=== PATIENT | female | born 1990 | race American Indian/Alaskan Native ===

== ENCOUNTER 2016-10-01 18:59 | Emergency (ER) | payer MEDICAID ==
[2016-10-01 19:52] LABS: Basophils % (Auto) 0.2 % (0.0-1.8); Hematocrit 41.7 % (30.3-42.9); Hemoglobin 13.2 gm/dl (10.1-14.3); Mean Corpuscular HGB Conc 32 % (30-34); Mean Corpuscular Volume 80 fl (79-97); Platelet Count 355 K/mm3 (140-440); Red Blood Count 5.22 M/mm3 (3.65-5.03); Red Cell Distribution Width 15.1 % (13.2-15.2); White Blood Count 10.3 K/mm3 (4.5-11.0)
[2016-10-01 19:55] LABS: Mean Corpuscular Hemoglobin 25 pg (28-32)
[2016-10-01 20:11] LABS: Alanine Aminotransferase 11 units/L (7-56); Albumin 4.1 g/dL (3.9-5); Alkaline Phosphatase 82 units/L (35-129); Anion Gap 22 mmol/L; BUN/Creatinine Ratio 11.42; Blood Urea Nitrogen 8 mg/dL (7-17); Calcium 8.6 mg/dL (8.4-10.2); Carbon Dioxide 21 mmol/L (22-30); Chloride 96.9 mmol/L (98-107); Glucose 78 mg/dL (65-100); Potassium 3.6 mmol/L (3.6-5.0); Sodium 136 mmol/L (137-145); Total Protein 8.1 g/dL (6.3-8.2)
[2016-10-01 21:32] LABS: Bilirubin,Urine NEG (Negative); Blood,Urine MOD (Negative); Ketones,Urine 80 mg/dL (Negative); Leukocyte Esterase,Urine SM (Negative); Mucus,Urine 3+ /HPF; Nitrite,Urine NEG (Negative); Urobilinogen,Urine < 2.0 mg/dL (<2.0)
[2016-10-02] MEDS ORDERED: MACROBID PO ONE (02:35)
[2016-10-02] MEDS ORDERED: NACL 0.9% 1000 ML 1,000 ML IV ONE (02:43)
[2016-10-02] MEDS ORDERED: TYLENOL PO ONE (02:43)
[2016-10-02] MEDS ORDERED: TORADOL IV ONE (02:54)
--- NOTE | 2016-10-02 02:54 | Emergency Department Report ---
HPI - General Chief Complaint: Urogenital-Female Time Seen by Provider: 10/02/16 02:29 - HPI HPI: This is a 26-year-old Afro-Mal[place]ian female presents the emergency department, driving himself in to be seen, with a complaint of a 3 to four-day history of some flulike symptoms. The patient says she has a mild headache, constantly feels warm with concern for fever, has some nausea and vomiting, some dysuria, and feels like she has "glassy eyes." She has not taken anything for symptoms prior to presentation. She denies any past medical history. No recent travel or sick contacts at home. She does not have a primary care physician. ED Past Medical Hx - Past Medical History Previous Medical History?: Yes Hx Hypertension: No Hx Congestive Heart Failure: No Hx Diabetes: No Hx Deep Vein Thrombosis: No Hx GERD: Yes Hx Renal Disease: No Hx Sickle Cell Disease: No Hx Seizures: No Hx Asthma: No Hx COPD: No Hx HIV: No - Surgical History Past Surgical History?: No - Social History Smoking Status: Never Smoker Substance Use Type: None - Medications Home Medications: Home Medications Medication Instructions Recorded Confirmed Last Taken Type Nitrofurantoin Keith/M-Cryst 100 mg PO Q12HR #14 capsule 10/02/16 Unknown Rx [Macrobid CAP] ED Review of Systems ROS: Stated complaint: FLU SYMPTOMS/WEAK/SWOLLEN VAG Other details as noted in HPI Comment: All other systems reviewed and negative Constitutional: fever. denies: weakness Eyes: denies: eye pain, eye discharge ENT: denies: ear pain, throat pain Respiratory: cough. denies: shortness of breath Cardiovascular: denies: chest pain, palpitations Gastrointestinal: nausea. denies: vomiting Genitourinary: dysuria. denies: discharge Musculoskeletal: myalgia. denies: back pain Skin: denies: rash, lesions Neurological: headache. denies: weakness, numbness, paresthesias Physical Exam - Physical Exam Vital Signs: Vital Signs 10/01/16 19:04 Temperature 100.1 F H Pulse Rate 108 H Respiratory 18 Rate Blood Pressure 132/77 O2 Sat by Pulse 99 Oximetry Physical Exam: GENERAL: The patient is well-developed well-nourished. HEENT: Normocephalic. Atraumatic. Extraocular motions are intact. Patient has moist mucous membranes. Pupils equal reactive to light bilaterally. No nystagmus. Oropharynx is clear without tonsillar hypertrophy, erythema or exudates. NECK: Supple. Trachea is midline. CHEST/LUNGS: Clear to auscultation. No cough heard during examination. There is no respiratory distress noted. HEART/CARDIOVASCULAR: Regular. There is no tachycardia. There is no gallop rub or murmur. ABDOMEN: Abdomen is soft, nontender. Patient has normal bowel sounds. There is no abdominal distention. SKIN: Skin is warm and dry. NEURO: The patient is awake, alert, and oriented. The patient is cooperative. The patient has no focal neurologic deficits. The patient has normal speech. Cranial nerves II through XII grossly intact. MUSCULOSKELETAL: There is no tenderness or deformity. There is no limitation range of motion. There is no evidence of acute injury. ED Course Vital Signs 10/01/16 19:04 Temperature 100.1 F H Pulse Rate 108 H Respiratory 18 Rate Blood Pressure 132/77 O2 Sat by Pulse 99 Oximetry ED Medical Decision Making - Lab Data Result diagrams: 10/01/16 19:37 10/01/16 19:37 - Radiology Data Radiology results: image reviewed interpreted by me: Chest x-ray did not show any acute process. Heart is normal shape and size. No effusions. No pneumothorax. No signs of pneumonia seen. - Medical Decision Making 26-year-old female presents the emergency department with complaint of some upper respiratory and or flulike symptoms. She does have a low-grade fever. No focus of the fever found on physical examination. Labs are mostly unremarkable but she does have a mild urinary tract infection. Chest x-ray did not show any pneumonia, pleural effusions or any acute process. Her urinalysis also showed about 80 ketones showing concern for some mild dehydration. She was given IV fluid and some Tylenol. Upon reevaluation she is feeling much improved and is resting comfortably. She was given a dose of Macrobid here and will be given a prescription for a one-week course. She has been encouraged to follow up with primary care and return to the ER with any worsening of her symptoms or any acute distress. - Differential Diagnosis viral syndrome, influenza, pneumonia Critical Care Time: No Critical care attestation.: If time is entered above; I have spent that time in minutes in the direct care of this critically ill patient, excluding procedure time. ED Disposition Clinical Impression: Viral syndrome Upper respiratory infection Qualifiers: URI type: unspecified URI Qualified Code(s): J06.9 - Acute upper respiratory infection, unspecified UTI (urinary tract infection) Qualifiers: Urinary tract infection type: acute cystitis Hematuria presence: without hematuria Qualified Code(s): N30.00 - Acute cystitis without hematuria Disposition: TO HOME OR SELFCARE Is pt being admited?: No Condition: Stable Instructions: Urinary Tract Infection in Women (ED), Fever in Adults (ED), Viral Syndrome (ED) Additional Instructions: Please follow-up with a primary care physician in the next few days. Return to the emergency department with any worsening of your symptoms or any acute distress. He can take Tylenol every 4 hours and ibuprofen every 6 hours, using weight-based dosing, as needed for fever or discomfort. Prescriptions: Nitrofurantoin Keith/M-Cryst [Macrobid CAP] 100 mg PO Q12HR #14 capsule Referrals: PRIMARY MD PRECIOUS [Primary Care Provider] - 3-5 Days HARJEET LEDESMA MD [Staff Physician] - 3-5 Days [facility] [Outside] - 3-5 Days Time of Disposition: 04:35
[2016-10-02 04:54] VITALS: BP 104/40
--- NOTE | 2016-10-02 07:15 | XRay Report ---
ROUTINE CHEST, TWO VIEWS: HISTORY: Call. The trachea, heart, mediastinal contour, lung stone and bony thorax are unremarkable. IMPRESSION: Unremarkable chest x-ray.
== END 2016-10-02 05:10 | disposition home or self-care (01) ==
LOC: ED 18:59
DX: B34.9 Viral infection, unspecified (principal); J06.9 Acute upper respiratory infection, unspecified; N30.00 Acute cystitis without hematuria; K21.9 Gastro-esophageal reflux disease without esophagitis
CPT/HCPCS: 36415; 71020; 80053; 81001; 84703; 85025; 96361; 96374; 99284; J1885; J7030

== ENCOUNTER 2018-05-05 09:03 | Emergency (ER) | payer MEDICAID ==
[2018-05-05 09:56] LABS: Bilirubin,Urine NEG (Negative); Blood,Urine SM (Negative); Color,Urine Yellow (Yellow); Mucus,Urine FEW /HPF; Protein,Urine <15 mg/dL mg/dL (Negative); Urobilinogen,Urine < 2.0 mg/dL (<2.0); WBC,Urine < 1.0 /HPF (0.0-6.0)
[2018-05-05 09:58] LABS: HCG Qualitative,Urine Negative (Negative)
[2018-05-05] MEDS ORDERED: SOLU-Medrol IM ONE (11:57)
[2018-05-05] MEDS ORDERED: TORADOL IM ONE (11:57)
--- NOTE | 2018-05-05 11:58 | Emergency Department Report ---
ED Back Pain/Injury HPI - General Chief Complaint: Abdominal Pain Stated Complaint: ABD PAIN/BACK PAIN/LEFT LEG Time Seen by Provider: 05/05/18 11:42 Source: patient Limitations: No Limitations - History of Present Illness Initial Comments: 28-year-old female presents to the ED with 3 day history of left-sided lower back pain, radiating into the left leg. Patient denies fall or injury. Patient states she lifts heavy objects at work. Patient denies numbness or weakness in the left leg. Denies urinary or bowel incontinence. Patient states she only reported mild suprapubic cramping when triage nurse asked about abdominal pain. Patient states she believes her menstrual period is about come on, however she did not come to the ER to be seen for her abdominal cramping. MD Complaint: back pain -: days(s) (3) Similar Symptoms Previously: No Radiation: left leg Severity: mild Quality: aching Consistency: intermittent Improves With: immobilization Worsens With: movement, other (bending over) Context: unknown Associated Symptoms: denies: weakness, chest pain, numbness, difficulty walking, difficulty urinating, incontinence, shortness of breath - Related Data Previous Rx's Medication Instructions Recorded Last Taken Type Naproxen [Naprosyn] 500 mg PO BID PRN #20 tablet 12/23/17 Unknown Rx Polymyxin B Sulf/Trimethoprim 1 drop OP QID #1 b 12/23/17 Unknown Rx [Polytrim Eye Drops [id number]/0.1%] Methocarbamol [Robaxin-750] 750 mg PO Q6HR PRN #20 tablet 05/05/18 Unknown Rx Naproxen [Naprosyn] 500 mg PO BID #20 tablet 05/05/18 Unknown Rx Allergies Allergy/AdvReac Type Severity Reaction Status Date / Time No Known Allergies Allergy Verified 05/05/18 09:03 ED Review of Systems ROS: Stated complaint: ABD PAIN/BACK PAIN/LEFT LEG Other details as noted in HPI Comment: All other systems reviewed and negative Constitutional: denies: chills, fever Respiratory: denies: shortness of breath Musculoskeletal: as per HPI ED Past Medical Hx - Past Medical History Previous Medical History?: Yes Hx Hypertension: No Hx Congestive Heart Failure: No Hx Diabetes: No Hx Deep Vein Thrombosis: No Hx GERD: Yes Hx Renal Disease: No Hx Sickle Cell Disease: No Hx Seizures: No Hx Asthma: No Hx COPD: No Hx HIV: No - Surgical History Past Surgical History?: No - Social History Smoking Status: Never Smoker Substance Use Type: None - Medications Home Medications: Home Medications Medication Instructions Recorded Confirmed Last Taken Type Naproxen [Naprosyn] 500 mg PO BID PRN #20 tablet 12/23/17 Unknown Rx Polymyxin B Sulf/Trimethoprim 1 drop OP QID #1 b 12/23/17 Unknown Rx [Polytrim Eye Drops [id number]/0.1%] Methocarbamol [Robaxin-750] 750 mg PO Q6HR PRN #20 tablet 05/05/18 Unknown Rx Naproxen [Naprosyn] 500 mg PO BID #20 tablet 05/05/18 Unknown Rx ED Physical Exam - General Limitations: No Limitations General appearance: alert, in no apparent distress - Head Head exam: Present: atraumatic, normocephalic - Eye Eye exam: Present: normal appearance - ENT ENT exam: Present: mucous membranes moist - Neck Neck exam: Present: normal inspection - Respiratory Respiratory exam: Present: normal lung sounds bilaterally. Absent: respiratory distress - Cardiovascular Cardiovascular Exam: Present: regular rate, normal rhythm - GI/Abdominal GI/Abdominal exam: Present: soft. Absent: distended, tenderness - Extremities Exam Extremities exam: Present: normal inspection. Absent: tenderness, pedal edema - Back Exam Back exam: Present: paraspinal tenderness (left lower lumbar), other (positive straight leg raise on left). Absent: vertebral tenderness - Neurological Exam Neurological exam: Present: alert, oriented X3. Absent: motor sensory deficit - Psychiatric Psychiatric exam: Present: normal affect, normal mood - Skin Skin exam: Present: warm, dry, intact, normal color ED Course Vital Signs 05/05/18 09:06 Temperature 98.3 F Pulse Rate 73 Respiratory 16 Rate Blood Pressure 121/64 [Right] O2 Sat by Pulse 98 Oximetry ED Medical Decision Making - Differential Diagnosis UTI, sciatica, myofascial strain Critical care attestation.: If time is entered above; I have spent that time in minutes in the direct care of this critically ill patient, excluding procedure time. ED Disposition Clinical Impression: Back pain with left-sided sciatica Disposition: TO HOME OR SELFCARE Is pt being admited?: No Condition: Stable Instructions: Lumbar Radiculopathy (ED) Prescriptions: Methocarbamol [Robaxin-750] 750 mg PO Q6HR PRN #20 tablet PRN Reason: Spasms Naproxen [Naprosyn] 500 mg PO BID #20 tablet Referrals: SHANEKA MCGUIRE MD [Staff Physician] - 3-5 Days Time of Disposition: 11:57
[2018-05-05 12:17] VITALS: BP 120/60
== END 2018-05-05 12:16 | disposition home or self-care (01) ==
LOC: ED 09:03
DX: M54.42 Lumbago with sciatica, left side (principal)
CPT/HCPCS: 81001; 81025; 96372; 99283; J1885; J2930

== ENCOUNTER 2019-04-16 08:39 | Emergency (ER) | payer SELFPAY ==
[2019-04-16 08:49] VITALS: BP 104/59
[2019-04-16] MEDS ORDERED: KETOROLAC 30 MG/1 ML INJ IM ONE (09:53)
[2019-04-16] MEDS ORDERED: CYCLOBENZAPRINE 10 MG TAB PO ONE (09:53)
--- NOTE | 2019-04-16 09:53 | Emergency Department Report ---
HPI - General Chief Complaint: Back Pain/Injury Time Seen by Provider: 04/16/19 09:40 - HPI HPI: 29-year-old -Beninese female presents to the emergency department with complaint of low back pain that has been going on since yesterday when the patie nt reached down to clean up some water on her floor. When the patient suddenly straightened back up "my back was out." The pain does not radiate. She denies any problems with bowel or bladder, numbness or paresthesias, or any neurological deficits. She denies any past medical history. However the patient says that she was here about one year ago and diagnosed with a "pinched nerve" and that this feels similar. She tried some Tylenol for her symptoms without any relief. The patient is ambulatory but was dropped off to be seen today. ED Past Medical Hx - Past Medical History Previous Medical History?: Yes Hx Hypertension: No Hx Congestive Heart Failure: No Hx Diabetes: No Hx Deep Vein Thrombosis: No Hx GERD: Yes Hx Renal Disease: No Hx Sickle Cell Disease: No Hx Seizures: No Hx Asthma: No Hx COPD: No Hx HIV: No - Surgical History Past Surgical History?: No - Social History Smoking Status: Never Smoker Substance Use Type: None - Medications Home Medications: Home Medications Medication Instructions Recorded Confirmed Last Taken Type Naproxen [Naprosyn] 500 mg PO BID PRN #20 tablet 12/23/17 Unknown Rx Polymyxin B Sulf/Trimethoprim 1 drop OP QID #1 b 12/23/17 Unknown Rx [Polytrim Eye Drops 76589kilso/0.1%] Methocarbamol [Robaxin-750] 750 mg PO Q6HR PRN #20 tablet 05/05/18 Unknown Rx Naproxen [Naprosyn] 500 mg PO BID #20 tablet 05/05/18 Unknown Rx Cyclobenzaprine [Flexeril 10 MG 10 mg PO TID PRN #12 tablet 04/16/19 Unknown Rx TAB] Ibuprofen [Motrin 800 MG tab] 800 mg PO Q8HR PRN #20 tablet 04/16/19 Unknown Rx ED Review of Systems ROS: Stated complaint: BACK PAIN Other details as noted in HPI Comment: All other systems reviewed and negative Constitutional: denies: chills, fever Cardiovascular: denies: chest pain Gastrointestinal: denies: abdominal pain Genitourinary: denies: dysuria, discharge Musculoskeletal: back pain. denies: arthralgia Neurological: denies: weakness, numbness, paresthesias Physical Exam - Physical Exam Vital Signs: Vital Signs 04/16/19 08:49 Temperature 98.7 F Pulse Rate 87 Respiratory 16 Rate Blood Pressure 104/59 O2 Sat by Pulse 97 Oximetry Physical Exam: GENERAL: The patient is well-developed well-nourished. HEENT: Normocephalic. Atraumatic. Patient has moist mucous membranes. EYES: Extraocular motions are intact. NECK: Supple. Trachea is midline. ABDOMEN: Abdomen is soft, nontender. There is no abdominal distention. SKIN:Skin is warm and dry. . NEURO: The patient is awake, alert, and oriented. The patient is cooperative. The patient has no focal neurologic deficits. Normal speech. DTR patella +2 over 4 bilaterally. MUSCULOSKELETAL: There is no tenderness or deformity. There is no limitation range of motion. There is no evidence of acute injury. Muscle strength 5 out of 5 upper and lower extremities bilaterally. BACK: There is both midline and bilateral paraspinal lumbar tenderness to palpation but no step-off or deformity. ED Course Vital Signs 04/16/19 08:49 Temperature 98.7 F Pulse Rate 87 Respiratory 16 Rate Blood Pressure 104/59 O2 Sat by Pulse 97 Oximetry ED Medical Decision Making - Medical Decision Making This patient presents with some nonradiating low back pain that started yes terday after she bent over to clean the floor. She has full range of motion and full muscle strength to all of her extremities. She denies any problems with bowel or bladder, numbness or paresthesias, or any neurological deficits. The discomfort is reproducible to palpation but there is no obvious step-off or deformity. While there was some apparent inciting event, there was no fall or trauma and I do not feel that any x-ray or advanced imaging was necessary at this time. She was given a shot of Toradol and a dose of Flexeril for analgesia. The patient was seen ambulatory in the emergency department and both appears and feels stable. She was given referrals for 2 different local orthopedic groups. The patient was also instructed to return to the emergency department immediately with any worsening of her symptoms or with any acute distress. - Differential Diagnosis muscle spasm, lumbar strain, herniated disc, pinched nerve Critical Care Time: No Critical care attestation.: If time is entered above; I have spent that time in minutes in the direct care of this critically ill patient, excluding procedure time. ED Disposition Clinical Impression: Low back pain Qualifiers: Chronicity: unspecified Back pain laterality: bilateral Sciatica presence: without sciatica Qualified Code(s): M54.5 - Low back pain Lumbar strain Qualifiers: Encounter type: initial encounter Qualified Code(s): S39.012A - Strain of muscle, fascia and tendon of lower back, initial encounter Disposition: TO HOME OR SELFCARE Is pt being admited?: No Condition: Stable Instructions: Low Back Strain (ED) Additional Instructions: Please follow up with an orthopedist in the next few days regarding your back pains. Return to the emergency Department with any worsening of your symptoms or any acute distress. You have been prescribed a medication that can be sedating. Therefore, this medication cannot be taken prior to driving, working, being responsible for children, and cannot be mixed with alcohol of any quantity. Prescriptions: Cyclobenzaprine [Flexeril 10 MG TAB] 10 mg PO TID PRN #12 tablet PRN Reason: Muscle Spasm Ibuprofen [Motrin 800 MG tab] 800 mg PO Q8HR PRN #20 tablet PRN Reason: Pain , Severe (7-10) Referrals: PRIMARY CAREMD [Primary Care Provider] - 2-3 Days SHANEKA MCGUIRE MD [Staff Physician] - 2-3 Days [facility] [Provider Group] - 2-3 Days Forms: Work/School Release Form(ED) Time of Disposition: 10:02
== END 2019-04-16 10:48 | disposition home or self-care (01) ==
LOC: ED 08:39
DX: S39.012A Strain of muscle, fascia and tendon of lower back, initial encounter (principal); K21.9 Gastro-esophageal reflux disease without esophagitis; X58.XXXA Exposure to other specified factors, initial encounter; Y93.89 Activity, other specified; Y92.89 Other specified places as the place of occurrence of the external cause; Y99.8 Other external cause status
CPT/HCPCS: 96372; 99282; J1885

== ENCOUNTER 2019-09-25 21:00 | Emergency (ER) | payer SELFPAY ==
[2019-09-25 21:20] VITALS: BP 124/60
[2019-09-26 00:08] LABS: Bilirubin,Urine NEG (Negative); Blood,Urine LG (Negative); Color,Urine Yellow (Yellow); HCG Qualitative,Urine Negative (Negative); Mucus,Urine FEW /HPF; Urobilinogen,Urine < 2.0 mg/dL (<2.0); WBC,Urine > 182.0 /HPF (0.0-6.0)
--- NOTE | 2019-09-26 00:19 | Emergency Department Report ---
ED Female HPI - General Chief complaint: Urogenital-Female Stated complaint: BLOOD IN URINE Time Seen by Provider: 09/26/19 00:13 Source: patient Mode of arrival: Ambulatory Limitations: No Limitations - History of Present Illness Initial comments: This is a 34-year-old female who has had 3 days of hematuria dysuria urinary frequency. Mild symptoms. She attempted cranberry juice to treat. Patient has 1 month of painless white vaginal discharge. Mild vaginal irritation. MD Complaint: dysuria, other (Hematuria) -: Gradual, days(s) (3) Severity: mild Worsens with: urination Are you Now?: No - Related Data Previous Rx's Medication Instructions Recorded Last Taken Type Naproxen [Naprosyn] 500 mg PO BID PRN #20 tablet 12/23/17 Unknown Rx Polymyxin B Sulf/Trimethoprim 1 drop OP QID #1 b 12/23/17 Unknown Rx [Polytrim Eye Drops [id number]/0.1%] Methocarbamol [Robaxin-750] 750 mg PO Q6HR PRN #20 tablet 05/05/18 Unknown Rx Naproxen [Naprosyn] 500 mg PO BID #20 tablet 05/05/18 Unknown Rx Cyclobenzaprine [Flexeril 10 MG 10 mg PO TID PRN #12 tablet 04/16/19 Unknown Rx TAB] Ibuprofen [Motrin 800 MG tab] 800 mg PO Q8HR PRN #20 tablet 04/16/19 Unknown Rx Phenazopyridine [Pyridium] 200 mg PO TID 2 Days #6 tab 09/26/19 Unknown Rx cephALEXin [Keflex] 500 mg PO Q6HR 5 Days #20 capsule 09/26/19 Unknown Rx Allergies Allergy/AdvReac Type Severity Reaction Status Date / Time No Known Allergies Allergy Verified 05/05/18 09:03 ED Review of Systems ROS: Stated complaint: BLOOD IN URINE Other details as noted in HPI Constitutional: denies: fever, malaise Respiratory: denies: cough Gastrointestinal: denies: abdominal pain Genitourinary: urgency, dysuria, frequency, hematuria ED Past Medical Hx - Past Medical History Previous Medical History?: Yes Hx Hypertension: No Hx Congestive Heart Failure: No Hx Diabetes: No Hx Deep Vein Thrombosis: No Hx GERD: Yes Hx Renal Disease: No Hx Sickle Cell Disease: No Hx Seizures: No Hx Asthma: No Hx COPD: No Hx HIV: No - Surgical History Past Surgical History?: No - Social History Smoking Status: Never Smoker Substance Use Type: Alcohol - Medications Home Medications: Home Medications Medication Instructions Recorded Confirmed Last Taken Type Naproxen [Naprosyn] 500 mg PO BID PRN #20 tablet 12/23/17 Unknown Rx Polymyxin B Sulf/Trimethoprim 1 drop OP QID #1 b 12/23/17 Unknown Rx [Polytrim Eye Drops [id number]/0.1%] Methocarbamol [Robaxin-750] 750 mg PO Q6HR PRN #20 tablet 05/05/18 Unknown Rx Naproxen [Naprosyn] 500 mg PO BID #20 tablet 05/05/18 Unknown Rx Cyclobenzaprine [Flexeril 10 MG 10 mg PO TID PRN #12 tablet 04/16/19 Unknown Rx TAB] Ibuprofen [Motrin 800 MG tab] 800 mg PO Q8HR PRN #20 tablet 04/16/19 Unknown Rx Phenazopyridine [Pyridium] 200 mg PO TID 2 Days #6 tab 09/26/19 Unknown Rx cephALEXin [Keflex] 500 mg PO Q6HR 5 Days #20 capsule 09/26/19 Unknown Rx ED Physical Exam - General Limitations: No Limitations General appearance: alert, in no apparent distress, other (Well-appearing, appears comfortable, no acute distress) - Head Head exam: Present: atraumatic, normocephalic - Eye Eye exam: Present: normal appearance - ENT ENT exam: Present: mucous membranes moist - Neck Neck exam: Present: normal inspection, full ROM - Respiratory Respiratory exam: Present: normal lung sounds bilaterally. Absent: respiratory distress, wheezes, rales, rhonchi - Cardiovascular Cardiovascular Exam: Present: regular rate, normal rhythm, normal heart sounds. Absent: systolic murmur, diastolic murmur, rubs, gallop - GI/Abdominal GI/Abdominal exam: Present: soft, normal bowel sounds. Absent: distended, tenderness, guarding, rebound - Extremities Exam Extremities exam: Present: normal inspection - Neurological Exam Neurological exam: Present: alert, oriented X3 - Psychiatric Psychiatric exam: Present: normal affect, normal mood - Skin Skin exam: Present: warm, dry, intact, normal color. Absent: rash ED Course Vital Signs 09/25/19 21:15 Temperature 98.3 F Pulse Rate 75 Respiratory 20 Rate Blood Pressure 124/60 O2 Sat by Pulse 97 Oximetry ED Medical Decision Making - Lab Data Laboratory Results - last 24 hr 09/25/19 Unknown Urine Color Yellow Urine Turbidity Cloudy Urine pH 5.0 Ur Specific [place] 1.018 Urine Protein 100 mg/dl Urine Glucose (UA) Neg Urine Ketones Neg Urine Blood Lg Urine Nitrite Neg Urine Bilirubin Neg Urine Urobilinogen < 2.0 Ur Leukocyte Esterase Lg Urine WBC (Auto) > 182.0 H Urine RBC (Auto) 71.0 U Epithel Cells (Auto) 6.0 Urine Mucus Few Urine HCG, Qual Negative - Medical Decision Making UTI confirmed by urinalysis with pyuria hematuria. Patient prescribed cephalexin and Pyridium Vaginitis suggestive of candidal infection. Recommended [id number] treatment. Critical care attestation.: If time is entered above; I have spent that time in minutes in the direct care of this critically ill patient, excluding procedure time. ED Disposition Clinical Impression: Urinary tract infection, Vaginitis Disposition: - TO HOME OR SELFCARE Is pt being admited?: No Does the pt Need Aspirin: No Condition: Stable Instructions: Urinary Tract Infection in Women (ED), Vaginitis (ED) Prescriptions: cephALEXin [Keflex] 500 mg PO Q6HR 5 Days #20 capsule Phenazopyridine [Pyridium] 200 mg PO TID 2 Days #6 tab Referrals: JESICA YOUSSEF MD [Staff Physician] - 3-5 Days Forms: Work/School Release Form(ED)
== END 2019-09-26 00:30 | disposition home or self-care (01) ==
LOC: ED 21:00
DX: N76.0 Acute vaginitis (principal); N39.0 Urinary tract infection, site not specified; K21.9 Gastro-esophageal reflux disease without esophagitis; Z79.899 Other long term (current) drug therapy
CPT/HCPCS: 81001; 81025; 99283